=== PATIENT | female | born 1960 | race African-American/Black ===

== ENCOUNTER 2017-07-15 13:39 | Inpatient (IN) ==
[2017-07-15] MEDS ORDERED: DOCUSATE SODIUM 100 MG CAPSULE PO PRN (14:10)
[2017-07-15] MEDS ORDERED: MAGNESIUM SULF RIDER 4 GM in PREMIX 1 EACH IV PRN (14:10)
[2017-07-15] MEDS ORDERED: POTASSIUM CHLORIDE 20 MEQ TABLET PO PRN (14:10)
[2017-07-15] MEDS ORDERED: MAGNESIUM SULF RIDER 2 GM in PREMIX 1 EACH IV PRN ×2 (14:10→16:30)
[2017-07-15] MEDS ORDERED: guaiFENesin/DM ER 600-30 MG TABLET PO PRN (14:10)
[2017-07-15] MEDS ORDERED: diphenhydrAMINE CAP 25 MG CAPSULE PO PRN (14:10)
[2017-07-15] MEDS ORDERED: LACTULOSE 20 GM/30 ML UDCUP PO PRN (14:10)
[2017-07-15] MEDS ORDERED: ZALEPLON 5 MG CAPSULE PO PRN (14:10)
[2017-07-15] MEDS ORDERED: ONDANSETRON 4 MG/2 ML VIAL IV PRN (14:10)
[2017-07-15] MEDS ORDERED: ACETAMINOPHEN 325 MG TABLET PO PRN (14:10)
[2017-07-15] MEDS ORDERED: ASPIRIN EC 81 MG TABLET PO SCH (14:30)
[2017-07-15] MEDS ORDERED: SODIUM CHLORIDE 0.9% 1,000 ML IV SCH (14:30)
[2017-07-15 16:04] LABS: CKMB % 4.7 %
[2017-07-15 16:07] LABS: Troponin I Only 2.95 NG/ML (0.00-0.045)
[2017-07-15] MEDS ORDERED: TICAGRELOR 90 MG TABLET PO ONE (16:26)
[2017-07-15] MEDS ORDERED: POTASSIUM CHLORIDE RIDER 10 MEQ in PREMIX 1 EACH IV PRN (16:30)
[2017-07-15 16:45] LABS: Alanine Aminotransferase 20 U/L (13-56); Albumin 4.1 G/DL (3.4-5.0); Alkaline Phosphatase 84 U/L (45-117); Aspartate Amino Transferase 33 U/L (0-37); Bilirubin,Direct < 0.050 MG/DL (0.0-0.20); Bilirubin,Indirect 0.8 MG/DL (0.0-1.0); Total Protein 7.5 G/DL (6.4-8.3)
[2017-07-15] MEDS: NITROGLYCERIN 2% OINT 1 INCH/GM PACK TOP SCH (17:47)
[2017-07-15] MEDS: SODIUM CHLORIDE 0.9% 1,000 ML IV SCH (17:54)
[2017-07-15] MEDS ORDERED: NITROGLYCERIN 2% OINT 1 INCH/GM PACK TOP SCH (18:00)
[2017-07-15] MEDS ORDERED: ALBUTEROL 2.5 MG/3 ML NEB RESP TX PRN (19:00)
[2017-07-15] MEDS ORDERED: hydroCHLOROthiazide 12.5 MG CAPSULE PO SCH (21:00)
[2017-07-15] MEDS ORDERED: TICAGRELOR 90 MG TABLET PO SCH (21:00)
[2017-07-15] MEDS: CARVEDILOL 3.125 MG TABLET PO SCH (21:02)
[2017-07-15] MEDS: OLMESARTAN 20 MG TABLET PO SCH (21:02)
[2017-07-15] MEDS: ROSUVASTATIN 20 MG TABLET PO SCH (21:02)
[2017-07-15 21:14] LABS: Troponin I Only 4.59 NG/ML (0.00-0.045)
[2017-07-15 22:16] LABS: Troponin I Only 5.07 NG/ML (0.00-0.045)
[2017-07-16] MEDS: NITROGLYCERIN 2% OINT 1 INCH/GM PACK TOP SCH ×5 (01:15→23:29)
[2017-07-16] MEDS: SODIUM CHLORIDE 0.9% 1,000 ML IV SCH ×3 (03:55→15:28)
[2017-07-16 06:45] LABS: Basophils # 0.1 10*3/uL (0.0-0.2); Basophils % 0.9 % (0.0-0.8); Eosinophils # 0.5 10*3/uL (0.0-0.87); Eosinophils % 5.2 % (0.00-10.9); Hematocrit 28.5 VOL% (35.7-47.0); Hemoglobin 9.4 GM/DL (12.0-16.0); Immature Granulocytes % 0.2 %; Immature Granulocytes Absolute 0.02 #; Lymphocytes # 3.2 10*3/uL (1.4-4.0); Lymphocytes % 36.2 % (21.3-54.2); Mean Corpuscular Hemoglobin 31 PG (27-34); Mean Platelet Volume 11.1 FL (9.6-12.0); Monocytes # 0.6 10*3/uL (0.11-0.8); Monocytes % 6.2 % (1.7-12.7); Neutrophils # 4.6 10*3/uL (1.4-7.4); Neutrophils % 51.3 % (38.7-73.9); Platelet Count 266 T/CUMM (130-400); Red Cell Distribution Width 13.2 % (9.3-17.3); White Blood Count 8.9 T/CUMM (4-12)
[2017-07-16 07:24] LABS: CKMB % 4.3 %; Calcium 9.1 MG/DL (8.5-10.1); Potassium 3.9 MMOL/L (3.5-5.1); Risk Ratio 5.68; Thyroid Stimulating Hormone 1.08 uIU/ml (0.358-3.74)
[2017-07-16 07:26] LABS: Troponin I Only 3.87 NG/ML (0.00-0.045)
[2017-07-16] MEDS: CARVEDILOL 3.125 MG TABLET PO SCH ×3 (07:58→21:04)
[2017-07-16] MEDS: ASPIRIN EC 81 MG TABLET PO SCH ×2 (07:59→12:22)
[2017-07-16] MEDS ORDERED: DIAZEPAM 5 MG TABLET PO ONE (08:00)
[2017-07-16] MEDS ORDERED: diphenhydrAMINE CAP 25 MG CAPSULE PO ONE (08:00)
[2017-07-16] MEDS ORDERED: VERAPAMIL 5 MG/2 ML VIAL ONE (08:05)
[2017-07-16] MEDS ORDERED: NITROGLYCERIN DRIP 50 MG/250 ML BOTTLE IV ONE (08:05)
[2017-07-16] MEDS ORDERED: MIDAZOLAM 2 MG/2 ML VIAL ONE (10:57)
[2017-07-16] MEDS ORDERED: fentaNYL 100 MCG/2 ML VIAL ONE (10:57)
[2017-07-16] MEDS ORDERED: ENOXAPARIN 60 MG/0.6 ML SYRINGE ONE (11:03)
[2017-07-16] MEDS ORDERED: TIROFIBAN 5,000 MCG/100 ML PREMIX IV SCH (11:22)
[2017-07-16] MEDS ORDERED: TIROFIBAN 5,000 MCG/100 ML PREMIX IV ONE (11:24)
[2017-07-16] MEDS ORDERED: TICAGRELOR 90 MG TABLET ONE (11:46)
[2017-07-16] MEDS: TICAGRELOR 90 MG TABLET PO SCH ×2 (12:24→21:03)
[2017-07-16 14:08] LABS: Apearance,Urine CLEAR (Clear); Bilirubin,Urine Negative (Negative); Blood, Urine Negative (Negative); Glucose,Urine (UA) Negative (Negative); Ketones,Urine 20 mg/dL (Negative); Mucus,Urine Occasional /LPF (Occasional); Nitrite,Urine Negative (Negative); Protein,Urine Negative; RBC,Urine <1 /HPF (0-4); Squamous Epithelial Cell,Urine Occasional /HPF (0-10); Urine Color Yellow (Yellow); Urine Specific Gravity > 1.060 (1.001-1.035); Urine Urobilinogen < 2.0 EU/DL (0.2-1.0); WBC,Urine <1 /HPF (0-6)
[2017-07-16] MEDS: PANTOPRAZOLE 40 MG TABLET PO SCH (15:00)
[2017-07-16] MEDS: OLMESARTAN 20 MG TABLET PO SCH (21:03)
[2017-07-16] MEDS: ROSUVASTATIN 20 MG TABLET PO SCH (21:04)
[2017-07-17] MEDS: SODIUM CHLORIDE 0.9% 1,000 ML IV SCH ×2 (00:29→13:52)
[2017-07-17] MEDS: NITROGLYCERIN 2% OINT 1 INCH/GM PACK TOP SCH ×2 (05:23→13:53)
[2017-07-17 05:39] LABS: Basophils % 0.4 % (0.0-0.8); Eosinophils # 0.4 10*3/uL (0.0-0.87); Eosinophils % 4.2 % (0.00-10.9); Hematocrit 26.9 VOL% (35.7-47.0); Hemoglobin 8.7 GM/DL (12.0-16.0); Immature Granulocytes % 0.3 %; Immature Granulocytes Absolute 0.03 #; Lymphocytes # 3.5 10*3/uL (1.4-4.0); Lymphocytes % 34.4 % (21.3-54.2); Mean Corpuscular HGB Conc 32.3 GM/DL (32-36); Mean Corpuscular Hemoglobin 31 PG (27-34); Mean Corpuscular Volume 95.4 FL (87-102); Mean Platelet Volume 10.8 FL (9.6-12.0); Monocytes # 0.8 10*3/uL (0.11-0.8); Monocytes % 7.4 % (1.7-12.7); Neutrophils # 5.5 10*3/uL (1.4-7.4); Neutrophils % 53.3 % (38.7-73.9); Platelet Count 254 T/CUMM (130-400); Red Blood Count 2.82 MC/CUMM (3.8-5.5); Red Cell Distribution Width 13.2 % (9.3-17.3); White Blood Count 10.3 T/CUMM (4-12)
[2017-07-17 06:03] LABS: Calcium 8.1 MG/DL (8.5-10.1); Osmolality,Calculated 282.8 MOS/KG (273-304); Potassium 3.4 MMOL/L (3.5-5.1)
[2017-07-17 06:55] LABS: Calcium 8.1 MG/DL (8.5-10.1); Osmolality,Calculated 282.8 MOS/KG (273-304); Potassium 3.4 MMOL/L (3.5-5.1)
[2017-07-17] MEDS: ASPIRIN EC 81 MG TABLET PO SCH (08:29)
[2017-07-17] MEDS: TICAGRELOR 90 MG TABLET PO SCH (08:29)
[2017-07-17] MEDS: CARVEDILOL 3.125 MG TABLET PO SCH (08:29)
[2017-07-17] MEDS: PANTOPRAZOLE 40 MG TABLET PO SCH (08:29)
[2017-07-17 12:11] VITALS: BP 141/99
== END 2017-07-17 15:07 | disposition home or self-care (01) | DRG 247 ==
LOC: INTOOBSV 15:14 → N.CC 15:14 → N.TELEN 07-16 20:21
PROVIDERS: ADMIT Internal Medicine Cardiovascular Disease; ATTEND Internal Medicine Cardiovascular Disease
PROC: CLCCHCL (ICD-10-PCS; 2017-07-16 12:15)

== ENCOUNTER 2018-02-06 13:52 | Inpatient (IN) ==
[2018-02-06] MEDS ORDERED: LABETALOL 20 MG/4 ML SYRINGE IV PRN (16:11)
[2018-02-06 16:59] LABS: Risk Ratio 2.65; VLDL CHOLESTEROL 15.2 MG/DL
[2018-02-06] MEDS: ACETAMINOPHEN 325 MG TABLET PO PRN (17:14)
[2018-02-06 18:33] LABS: Barbiturates Screen,Urine Negative (Negative); Benzodiazepines Screen,Urine Negative (Negative); Cannabinoid Screen,Urine Positive (Negative); Opiate Screen,Urine Positive (Negative); Phencyclidine Screen,Urine Negative (Negative)
[2018-02-06] MEDS: OLMESARTAN 20 MG TABLET PO SCH (20:32)
[2018-02-06] MEDS: ROSUVASTATIN 20 MG TABLET PO SCH (20:32)
[2018-02-06] MEDS: hydroCHLOROthiazide 12.5 MG CAPSULE PO SCH (20:33)
[2018-02-06] MEDS: ENOXAPARIN 40 MG/0.4 ML SYRINGE SUBCUT SCH (20:33)
[2018-02-07] MEDS ORDERED: MORPHINE 4 MG/1 ML VIAL IV PRN (06:33)
[2018-02-07] MEDS ORDERED: ASPIRIN CHEW 81 MG TABLET PO ONE (06:33)
[2018-02-07] MEDS ORDERED: NITROGLYCERIN SL 0.4 MG TABLET SL PRN (06:33)
[2018-02-07] MEDS ORDERED: MORPHINE 4 MG/1 ML VIAL ONE (06:34)
[2018-02-07] MEDS ORDERED: ONDANSETRON 4 MG/2 ML VIAL ONE (06:35)
[2018-02-07] MEDS: ONDANSETRON 4 MG/2 ML VIAL IV PRN ×2 (06:37→18:56)
[2018-02-07] MEDS ORDERED: CLORAZEPATE 3.75 MG TABLET PO ONE (06:39)
[2018-02-07 07:03] LABS: Basophils # 0.1 10*3/uL (0.0-0.2); Basophils % 0.7 % (0.0-0.8); Eosinophils # 0.1 10*3/uL (0.0-0.87); Eosinophils % 0.9 % (0.00-10.9); Hematocrit 37.8 VOL% (35.7-47.0); Immature Granulocytes % 0.3 %; Immature Granulocytes Absolute 0.03 #; Lymphocytes # 4.5 10*3/uL (1.4-4.0); Mean Corpuscular HGB Conc 31.7 GM/DL (32-36); Mean Corpuscular Hemoglobin 29 PG (27-34); Mean Corpuscular Volume 91.7 FL (87-102); Mean Platelet Volume 10.7 FL (9.6-12.0); Monocytes # 0.6 10*3/uL (0.11-0.8); Monocytes % 5.8 % (1.7-12.7); Neutrophils # 5.4 10*3/uL (1.4-7.4); Neutrophils % 50.3 % (38.7-73.9); Platelet Count 404 T/CUMM (130-400); Red Blood Count 4.12 MC/CUMM (3.8-5.5); Red Cell Distribution Width 14.4 % (9.3-17.3); White Blood Count 10.7 T/CUMM (4-12)
[2018-02-07 07:46] LABS: Bilirubin,Total 0.4 MG/DL (0.2-1.0); Calcium 10.7 MG/DL (8.5-10.1); Osmolality,Calculated 281.4 MOS/KG (273-304); Potassium 4.2 MMOL/L (3.5-5.1); Total Protein 8.9 G/DL (6.4-8.3)
[2018-02-07] MEDS ORDERED: CLOPIDOGREL 75 MG TABLET PO SCH (09:00)
[2018-02-07] MEDS ORDERED: TICAGRELOR 90 MG TABLET PO ONE (11:23)
[2018-02-07] MEDS: ASPIRIN 325 MG TABLET PO SCH (11:36)
[2018-02-07] MEDS: hydroCHLOROthiazide 12.5 MG CAPSULE PO SCH (20:13)
[2018-02-07] MEDS: TICAGRELOR 90 MG TABLET PO SCH (20:13)
[2018-02-07] MEDS: ROSUVASTATIN 20 MG TABLET PO SCH (20:13)
[2018-02-07] MEDS: ENOXAPARIN 40 MG/0.4 ML SYRINGE SUBCUT SCH (20:13)
[2018-02-07] MEDS: OLMESARTAN 20 MG TABLET PO SCH (20:13)
[2018-02-08] MEDS: CLORAZEPATE 7.5 MG TABLET PO PRN ×2 (00:29→16:21)
[2018-02-08 05:28] LABS: Basophils # 0.1 10*3/uL (0.0-0.2); Basophils % 0.5 % (0.0-0.8); Eosinophils % 0.2 % (0.00-10.9); Hematocrit 37.3 VOL% (35.7-47.0); Hemoglobin 11.7 GM/DL (12.0-16.0); Immature Granulocytes % 0.4 %; Immature Granulocytes Absolute 0.04 #; Lymphocytes # 1.9 10*3/uL (1.4-4.0); Lymphocytes % 16.7 % (21.3-54.2); Mean Corpuscular HGB Conc 31.4 GM/DL (32-36); Mean Corpuscular Hemoglobin 29 PG (27-34); Mean Corpuscular Volume 91.4 FL (87-102); Mean Platelet Volume 10.8 FL (9.6-12.0); Monocytes # 0.6 10*3/uL (0.11-0.8); Monocytes % 5.7 % (1.7-12.7); Neutrophils # 8.6 10*3/uL (1.4-7.4); Neutrophils % 76.5 % (38.7-73.9); Platelet Count 407 T/CUMM (130-400); Red Blood Count 4.08 MC/CUMM (3.8-5.5); Red Cell Distribution Width 14.5 % (9.3-17.3); White Blood Count 11.2 T/CUMM (4-12)
[2018-02-08 05:39] LABS: Osmolality,Calculated 282.4 MOS/KG (273-304)
[2018-02-08] MEDS: ONDANSETRON 4 MG/2 ML VIAL IV PRN (07:09)
[2018-02-08] MEDS: TICAGRELOR 90 MG TABLET PO SCH ×2 (09:35→20:32)
[2018-02-08] MEDS: ASPIRIN 325 MG TABLET PO SCH (09:35)
[2018-02-08] MEDS: amLODIPine 2.5 MG TABLET PO SCH (12:52)
[2018-02-08] MEDS: CARVEDILOL 6.25 MG TABLET PO SCH (12:52)
[2018-02-08] MEDS: ACETAMINOPHEN 325 MG TABLET PO PRN (16:22)
[2018-02-08] MEDS: ROSUVASTATIN 20 MG TABLET PO SCH (20:32)
[2018-02-08] MEDS: OLMESARTAN 20 MG TABLET PO SCH (20:33)
[2018-02-08] MEDS: ENOXAPARIN 40 MG/0.4 ML SYRINGE SUBCUT SCH (20:33)
[2018-02-08] MEDS: hydroCHLOROthiazide 12.5 MG CAPSULE PO SCH (20:33)
[2018-02-09] MEDS: ONDANSETRON 4 MG/2 ML VIAL IV PRN ×2 (07:21→19:38)
[2018-02-09] MEDS: amLODIPine 2.5 MG TABLET PO SCH (09:34)
[2018-02-09] MEDS: TICAGRELOR 90 MG TABLET PO SCH (09:34)
[2018-02-09] MEDS: ASPIRIN 325 MG TABLET PO SCH (09:34)
[2018-02-09] MEDS: CARVEDILOL 6.25 MG TABLET PO SCH ×2 (09:34→17:38)
[2018-02-09] MEDS ORDERED: PROMETHAZINE INJ 25 MG in SODIUM CHLORIDE 0.9% 50 ML IV PRN (10:51)
[2018-02-09] MEDS: CLORAZEPATE 7.5 MG TABLET PO PRN (17:43)
[2018-02-09] MEDS: hydroCHLOROthiazide 12.5 MG CAPSULE PO SCH (21:25)
[2018-02-09] MEDS: ROSUVASTATIN 20 MG TABLET PO SCH (21:25)
[2018-02-09] MEDS: OLMESARTAN 20 MG TABLET PO SCH (21:25)
[2018-02-09] MEDS: PANTOPRAZOLE 40 MG VIAL IV SCH (21:26)
[2018-02-09] MEDS: APIXABAN 5 MG TABLET PO SCH (21:26)
[2018-02-10] MEDS: APIXABAN 5 MG TABLET PO SCH ×2 (08:32→20:04)
[2018-02-10] MEDS: CARVEDILOL 6.25 MG TABLET PO SCH ×2 (08:32→17:02)
[2018-02-10] MEDS: PANTOPRAZOLE 40 MG VIAL IV SCH ×2 (08:33→20:04)
[2018-02-10] MEDS: ASPIRIN 325 MG TABLET PO SCH (08:40)
[2018-02-10] MEDS ORDERED: CLOPIDOGREL 75 MG TABLET PO SCH (09:00)
[2018-02-10] MEDS: ACETAMINOPHEN 325 MG TABLET PO PRN ×2 (11:23→22:32)
[2018-02-10] MEDS: hydroCHLOROthiazide 12.5 MG CAPSULE PO SCH (20:03)
[2018-02-10] MEDS: OLMESARTAN 20 MG TABLET PO SCH (20:04)
[2018-02-10] MEDS: ROSUVASTATIN 20 MG TABLET PO SCH (20:04)
[2018-02-11] MEDS: CARVEDILOL 6.25 MG TABLET PO SCH (09:22)
[2018-02-11] MEDS: PANTOPRAZOLE 40 MG VIAL IV SCH (09:22)
[2018-02-11] MEDS: APIXABAN 5 MG TABLET PO SCH (09:22)
[2018-02-11] MEDS: ASPIRIN 325 MG TABLET PO SCH (09:22)
[2018-02-11] MEDS: ACETAMINOPHEN 325 MG TABLET PO PRN (09:23)
[2018-02-11] MEDS: ONDANSETRON 4 MG/2 ML VIAL IV PRN (09:49)
[2018-02-11 14:04] VITALS: BP 92/59
== END 2018-02-11 13:40 | DRG 65 ==
LOC: INTOOBSV 15:10 → N.4E 15:10 → SUATTDRO 15:10 → N.4E 02-11 13:58
PROVIDERS: ADMIT Internal Medicine; ATTEND Internal Medicine